=== PATIENT | female | born 1975 | race African-American/Black ===

== ENCOUNTER → 2021-10-25 | Outpatient (CLI) | payer OTHER ==
--- NOTE | 2021-10-25 10:56 | RAD ---
XR LUMBAR SPINE 2-3V History: Low back pain Comparison: MRI lumbar spine 08/15/2021 Technique: 2 views of the lumbar spine. Findings: There are 5 non-rib bearing lumbar vertebral segments. There is no evidence of fracture. No destructive osseous lesions. There is grade 2 anterolisthesis of L5 on S1 on the basis of bilateral L5 pars interarticularis defec ts. Facet hypertrophy at L4-L5 and L5-S1 and moderate to severe disc space narrowing at L5-S1 causes bila teral neural foraminal narrowing at L5-S1. Sacroiliac joints are unremarkable. Soft tissues are unremarkable. IMPRESSION: 1. Grade 2 isthmic anterolisthesis of L5 on S1 with degenerative disc space narrowing and bilateral L5-S1 neural foraminal narrowing. Electronically signed by: Sukh Berman MD (10/25/2021 10:54 AM) [id number]
== END ==
LOC: RAD 09:55
PROVIDERS: ATTEND Family Medicine
DX: Z02.71 Encounter for disability determination (principal); M48.07 Spinal stenosis, lumbosacral region; M43.17 Spondylolisthesis, lumbosacral region; M47.897 Other spondylosis, lumbosacral region
CPT/HCPCS: 72100